=== PATIENT | female | born 1990 | race Hispanic/Latino ===

== ENCOUNTER 2017-04-05 08:59 | Emergency (ER) | payer SELFPAY ==
[2017-04-05 09:34] LABS: #Basophils 0.1 thou/uL (0.0-0.2); #Eosinphils 0.1 thou/uL (0.0-0.7); #Monocytes 0.3 thou/uL (0.11-0.59); #Neutrophils 2.9 thou/uL (1.40-6.50); %Basophils 1.1 % (0.0-1.0); %Eosinophils 1.6 % (0.0-10.0); %Lymphocytes 37.6 % (21.0-51.0); %Monocytes 5.8 % (0.0-10.0); Hematocrit 38.9 % (36.0-47.0); Mean Platelet Volume 7.5 fL (7.4-10.4); Red Blood Cell (RBC) Count 4.08 mill/uL (4.20-5.40); White Blood Cell (WBC) Count 5.3 thou/uL (4.8-10.8)
[2017-04-05] MEDS ORDERED: Acetaminophen 325 MG TAB ONE (09:36)
[2017-04-05] MEDS ORDERED: Ketorolac Tromethamine 30 MG/ML VIAL ONE (09:36)
[2017-04-05 09:55] LABS: ALT (SGPT) 22 U/L (8-55); AST (SGOT) 21 U/L (5-34); Alkaline Phosphatase 60 U/L (40-150); Anion Gap 14 mmol/L (10-20); BUN (Urea Nitrogen) 15 mg/dL (7.0-18.7); Bilirubin, Total 0.5 mg/dL (0.2-1.2); Calc. Creatinine Clearance 0 mL/min (70-130); Calcium 8.9 mg/dL (7.8-10.44); Carbon Dioxide 21 mmol/L (22-29); Chloride 109 mmol/L (98-107); Estimated GFR-MDRD Greater than 90; Globulin 3.1 g/dL (2.4-3.5); Protein, Total 7.1 g/dL (6.0-8.3)
[2017-04-05 10:15] LABS: Bilirubin Negative (Negative); Blood, Urine Large (Negative); Glucose, Urine (Dipstick) Negative (Negative); Ketone, Urine Negative (Negative); Nitrite Negative (Negative); Protein, Urine (Dipstick) 100 mg/dL (Neg-Trace); Urobilinogen 0.2 mg/dL (0.2-1.0)
[2017-04-05 10:18] LABS: Bacteria/HPF None Seen HPF (None Seen); Hyaline Casts/LPF 0-3 HYALINE CAST LPF (0-3 Hyaline); RBC/HPF 0-3 HPF (0-3); Squamous Epithelial None Seen HPF (0-3); WBC/HPF None Seen HPF (0-3)
[2017-04-05 10:24] LABS: Amphetamine Not Detected (NotDetected); Methadone Not Detected (NotDetected); Methamphetamine Not Detected (NotDetected)
[2017-04-05] MEDS ORDERED: levETIRAcetam In NaCl (Iso-Os) 1,000 MG in Premix Bag 1 BAG IVPB SCH ×2 (11:45)
== END 2017-04-05 12:57 | disposition home or self-care (01) ==
LOC: ERS 08:59
DX: G40.909 Epilepsy, unspecified, not intractable, without status epilepticus (principal)
CPT/HCPCS: 36415; 80053; 80306; 81003; 81015; 81025; 85025; 93005; 96365; 96375; J1885; J1953

== ENCOUNTER 2017-07-18 18:04 | Emergency (ER) | payer MEDICAID, SELFPAY ==
[2017-07-18 20:36] LABS: Bilirubin Negative (Negative); Blood, Urine Negative (Negative); Clarity CLEAR (Clear); Glucose, Urine (Dipstick) Negative (Negative); Leukocyte Negative (Negative); Nitrite Negative (Negative); Protein, Urine (Dipstick) Trace mg/dL (Neg-Trace); Specific Gravity, Urine 1.021 (1.002-1.036); Urobilinogen 0.2 mg/dL (0.2-1.0)
[2017-07-18 20:37] LABS: Pregnancy Test - Urine (BHCG) Negative (Negative); Pregu Control Background? CLEAR/WHITE (CLR/WHITE); Pregu Control Bar Appear? YES (CONTROL BAR); Specific Gravity 1.021 (1.002-1.036)
[2017-07-18 20:43] LABS: #Basophils 0.1 thou/uL (0.0-0.2); #Eosinphils 0.1 thou/uL (0.0-0.7); #Lymphocytes 2.9 thou/uL (1.20-3.40); #Monocytes 0.5 thou/uL (0.11-0.59); #Neutrophils 5.4 thou/uL (1.40-6.50); %Basophils 0.8 % (0.0-1.0); %Eosinophils 1.6 % (0.0-10.0); %Lymphocytes 31.7 % (21.0-51.0); %Monocytes 5.9 % (0.0-10.0); Hemoglobin 13.9 g/dL (12.0-16.0); Mean Corpuscular HGB CONC 35.9 g/dL (32.0-36.0); Mean Corpuscular Volume 91.8 fl (81.0-99.0); Mean Platelet Volume 7.4 fL (7.4-10.4); Platelet Count 272 thou/uL (130-400); Red Blood Cell (RBC) Count 4.22 mill/uL (4.20-5.40)
[2017-07-18 21:04] LABS: ALT (SGPT) 23 U/L (8-55); AST (SGOT) 25 U/L (5-34); Alkaline Phosphatase 94 U/L (40-150); Anion Gap 11 mmol/L (10-20); BUN (Urea Nitrogen) 9 mg/dL (7.0-18.7); Bilirubin, Total 0.3 mg/dL (0.2-1.2); Calc. Creatinine Clearance 0 mL/min (70-130); Calcium 8.9 mg/dL (7.8-10.44); Carbon Dioxide 24 mmol/L (22-29); Chloride 109 mmol/L (98-107); Estimated GFR-MDRD Greater than 90; Globulin 3.2 g/dL (2.4-3.5); Glucose 99 mg/dL (70-105); Protein, Total 7.2 g/dL (6.0-8.3); Sodium 140 mmol/L (136-145)
== END 2017-07-18 21:33 | disposition home or self-care (01) ==
LOC: ERS 18:04
DX: N93.9 Abnormal uterine and vaginal bleeding, unspecified (principal)
CPT/HCPCS: 36415; 80053; 81003; 81025; 84702; 85025; 86850; 86900; 86901; 99284

== ENCOUNTER 2019-01-13 22:09 | Day surgery (SDC) | payer OTHER ==
[2019-01-13 22:44] VITALS: BMI 36.6
[2019-01-13] MEDS ORDERED: hydrALAZINE 20 MG/ML VIAL SLOW IVP PRN (23:06)
--- NOTE | 2019-01-13 23:48 | PRG ---
DATE OF SERVICE: 01/13/2019 PRIMARY OB: Shamar Read MD CHIEF COMPLAINT: Leakage of fluid. HISTORY OF PRESENT ILLNESS: The patient is a 28-year-old G5, P4 female with an intrauterine at 20 weeks gestation, who is presenting to Labor and Delivery after experiencing an episode of leakage of fluid at 8:30 this evening. The patient reports bathing at 7 o'clock and at about 8:30, having some leakage of fluid and since then reports that she has had a pad that has been staying wet. She reports that the pad appears to have white discharge on it. The patient denies any uterine contractions, any vaginal bleeding. She reports that she has had a several month history of intermittent coughing and headache and sinus congestion. She reports occasional nausea, vomiting, shortness of breath, and chest pain that she has associated with this . She denies any falls, diarrhea, constipation, hip problems, knee problems, or muscle weakness. Again, denies vaginal bleeding or urinary urgency or frequency. The patient last saw her doctor this afternoon and reports that the visit was routine. The patient does report a history of 32-week delivery with similar symptoms and was diagnosed with premature rupture of membranes at that time. PAST MEDICAL HISTORY: Negative prior records. Reports a history of seizure and vertigo. PAST SURGICAL HISTORY: The patient reports negative though past medical reports describe a left ankle surgery. SOCIAL HISTORY: Denies drug, alcohol, or tobacco use. ALLERGIES: NO KNOWN DRUG ALLERGIES. MEDICATIONS: vitamins. PHYSICAL EXAMINATION: VITAL SIGNS: Blood pressure 119/66, heart rate of 87, respiratory rate 18, temperature 98.2. GENERAL: She appears to be in no acute distress. She is alert and oriented, cooperative, and pleasant to interact with. HEENT: Head is normocephalic, atraumatic. LUNGS: Clear to auscultation bilaterally. HEART: Regular rate and rhythm. ABDOMEN: Soft, nontender. EXTREMITIES: Nontender, nonedematous. Vulva is without masses, lesions, or erythema. It does appear moist on speculum exam. Vagina is moist with a white creamy discharge. Cervix is difficult to see as the vaginal shelton quickly collapsed down. VPIII and AmniSure collected. There is no pulling noticeable with Valsalva or cough. On digital exam, cervix is firm and close. No palpable presenting parts. heart tones are dopplered in the 150s. AmniSure and VPIII tear collected. ASSESSMENT AND PLAN: The patient is a 28-year-old G5, P4 female with an intrauterine at 20 weeks presenting with a single episode of leakage of fluid after taking a bath. AmniSure and VPIII are pending. If AmniSure report returns negative, the patient will be discharged home with reassurance as the VPIII will not be back until tomorrow. The patient has her next appointment with Dr. Read in 4 weeks. If the VPIII comes back positive, we will be sending her home with metronidazole for bacterial vaginosis or other treatment as indicated. Fetus has reassurance by Doppler heart tones. Job ID: [id number]
[2019-01-14 00:41] LABS: Amnisure Test No Membranes Rupture (No Rupture)
[2019-01-14 00:42] LABS: Amnisure Internal Control QC ACCEPTABLE (ACCEPTABLE)
== END 2019-01-14 01:27 | disposition home or self-care (01) ==
LOC: L&D/OP 22:09
PROVIDERS: ATTEND Obstetrics & Gynecology
DX: O99.89 Other specified diseases and conditions complicating pregnancy, childbirth and the puerperium (principal); N89.8 Other specified noninflammatory disorders of vagina; Z3A.20 20 weeks gestation of pregnancy
CPT/HCPCS: 84112; 87480; 87510; 87660; 99285

== ENCOUNTER 2019-02-20 13:07 | Emergency (ER) | payer OTHER ==
[2019-02-20] MEDS ORDERED: Acetaminophen 500 MG TAB ONE (14:14)
== END 2019-02-20 14:40 | disposition home or self-care (01) ==
LOC: ERS 13:07
DX: O9A.212 Injury, poisoning and certain other consequences of external causes complicating pregnancy, second trimester (principal); S39.91XA Unspecified injury of abdomen, initial encounter; Z3A.25 25 weeks gestation of pregnancy

== ENCOUNTER 2019-04-12 14:27 | Day surgery (SDC) | payer OTHER ==
[2019-04-12 15:26] VITALS: BMI 38.2
[2019-04-12] MEDS ORDERED: FLU VACC QS2019-20(6MOS UP)/PF 60 MCG/0.5 ML SYRINGE IM ONE (15:30)
[2019-04-12 16:01] LABS: Amnisure Internal Control QC ACCEPTABLE (ACCEPTABLE); Amnisure Test No Membranes Rupture (No Rupture)
--- NOTE | 2019-04-12 20:27 | PRG ---
DATE OF SERVICE: 04/12/2019 PRIMARY OB: Shamar Read MD CHIEF COMPLAINT: Leakage of fluid. HISTORY OF PRESENT ILLNESS: The patient is a 29-year-old, G5, P4 female with an intrauterine at 32 weeks and 5 days, presenting with a 5-day history of leakage of fluid. The patient was initially evaluated in the clinic and was noted to have an AIRAM of 7 and was sent here for further evaluation. The patient reports that she has just been having this watery discharge. She reports a history of premature rupture of membranes with the previous and just wanted to come and make sure things are okay. The patient denies any vaginal bleeding. She denies any change in odorous discharge. Denies any fever, fall, headache, chest pain, shortness of breath, nausea, vomiting, diarrhea, constipation, hip problems, knee problems, or muscle weakness. Denies any vaginal bleeding or leakage of fluid. Denies urinary urgency or frequency. PAST MEDICAL HISTORY: Noncontributory. PAST SURGICAL HISTORY: She had a left ankle surgery. ALLERGIES: NO KNOWN DRUG ALLERGIES. MEDICATIONS: vitamins. SOCIAL HISTORY: Denies drug, alcohol, or tobacco use. OB LABS: Blood type is O positive. RPR is nonreactive. HIV nonreactive. REVIEW OF SYSTEMS: Per HPI. PHYSICAL EXAMINATION: VITAL SIGNS: Blood pressure 116/58, heart rate of 71, saturating 97% on room air, temperature 98.4, and respiratory rate 14. GENERAL: She appears to be in no acute distress. She is alert and oriented, cooperative, and pleasant to interact with. HEAD: Normocephalic and atraumatic. LUNGS: Clear to auscultation bilaterally. HEART: Regular rate and rhythm. ABDOMEN: Gravid and soft. EXTREMITIES: Nontender. Nonedematous. : Vulva without masses, lesions, or erythema. Vagina is moist. She has some watery discharge. No pulling. Cervix is visibly closed. AmniSure collected and VP3 collected. heart tracing shows a baseline in the 140s with moderate long-term variability positive 15 x 15 accelerations. Tocometer shows no contractions. AmniSure test is negative. VP3 is negative x3. ASSESSMENT AND PLAN: The patient is a 29-year-old multiparous female with an intrauterine at 32 weeks and 5 days complaining of some leakage of fluid. The patient has no evidence of yeast infection, bacterial vaginosis, Trichomonas, or evidence of rupture of membranes. The patient did have a little more watery discharge, look transudative in nature. The patient has been discharged home with instructions to follow up with her primary OB as scheduled. Fetus has a reactive NST and category 1 tracing. Job ID: [id number]
== END 2019-04-12 17:20 | disposition home or self-care (01) ==
LOC: L&D/OP 14:27
PROVIDERS: ATTEND Obstetrics & Gynecology
DX: O99.89 Other specified diseases and conditions complicating pregnancy, childbirth and the puerperium (principal); N89.8 Other specified noninflammatory disorders of vagina; Z3A.32 32 weeks gestation of pregnancy
CPT/HCPCS: 84112; 87480; 87510; 87660; 99285

== ENCOUNTER 2019-05-16 00:22 | Day surgery (SDC) | payer OTHER ==
[2019-05-16 00:54] VITALS: BMI 37.6
--- NOTE | 2019-05-16 02:52 | PDOC.FPROB ---
FMR OB H&P: HPI - History of Present Illness Chief Complaint: contractions History of Present Illness: 29 yo @37.4wks presents with contractions since yesterday morning. States they were 10 minutes apart and painful, however currently they have improved and are less painful. 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 Endorses movement. Denies LOF, VB, discharge, dysuria. FMR OB H&P: Current - Care : 5 Para: 4 FMR OB H&P: History - Past Medical History PMH: denies - OB History OB History: four prior vaginal deliveries, term - Surgical History Sx History: none - Social History Social History: denies smoking, alcohol, drug use - Family History Family History: denies diabetes, htn in family FMR OB H&P: Medications - Current Home Medications: Medication Instructions Recorded Confirmed Type Pnv72/Iron,Gluc/Folic/Dss/Dha 1 tab PO DAILY 04/12/19 05/16/19 History [Citranatal 90 DHA Combo Pack] Allergies/Adverse Reactions: Allergies Allergy/AdvReac Type Severity Reaction Status Date / Time No Known Drug Allergies Allergy Verified 05/16/19 00:54 FMR OB H&P: ROS - Review of Systems General: denies: fever/chills, weight/appetite/sleep changes ENT: denies: nasal congestion, rhinorrhea Cardiovascular: denies: chest pain, palpitation Respiratory: denies: cough, congestion, shortness of breath Gastrointestinal: denies: abdominal pain, nausea, vomiting, diarrhea Genitourinary (Female): reports: contractions. denies: dysuria, hematuria, vaginal discharge, vaginal pain, vaginal bleeding Musculoskeletal: denies: pain, stiffness Neurologic: denies: numbness, syncope Integumentary: denies: itching, rash Endocrine: denies: cold intolerance, heat intolerance Hematologic/Lymphatic: denies: prolonged or excessive bleeding FMR OB H&P: Vital Signs - Maternal Vital signs: 114/67 - Heart Tones Baseline: 120 (reactive) Variability: moderate Acceleration: present [place] contractions every: none FMR OB H&P: Physical Exam - Physical Exam General: NAD, awake, alert and oriented Heart: RRR, normal S1/S2, no murmurs/rubs/gallops General: CTAB, no respiratory distress, good air movement Abdomen: soft, gravid Skin: no rash, good tugor, capillary refill <2 seconds Lymphatic: no unusual bruising or bleeding, no purpura Psychiatric: intact recent and remote memory - Pelvic Exam SVE: /-3 FMR OB H&P: A/P - Problem List (1) Third trimester Status: Acute Code(s): Z34.93 - ENCNTR FOR SUPRVSN OF NORMAL PREG, UNSP, THIRD TRIMESTER (2) Irregular contractions Status: Acute Code(s): O62.2 - OTHER UTERINE INERTIA Discussion: Date/Time: 05/16/19 0252 29 yo @37.4wks presents with contractions- 1.)Labor rule out-will monitor via NST and recheck cervix to assess for change. Suspect d/c. This H&P was discussed with Dr. Ponce who agree with the above documentation and plan.
== END 2019-05-16 02:30 | disposition home or self-care (01) ==
LOC: L&D/OP 00:22
PROVIDERS: ATTEND Obstetrics & Gynecology
DX: O47.1 False labor at or after 37 completed weeks of gestation (principal); Z3A.37 37 weeks gestation of pregnancy

== ENCOUNTER 2019-05-23 13:50 | Inpatient (IN) | payer MEDICAID, OTHER, SELFPAY ==
[2019-05-23 14:17] LABS: Bilirubin Negative (Negative); Blood, Urine Negative (Negative); Clarity Clear (Clear); Glucose, Urine (Dipstick) Normal (Negative); Leukocyte Negative Leu/uL (Negative); Nitrite Negative (Negative); Protein, Urine (Dipstick) Negative (Neg-Trace); Urobilinogen Normal mg/dL (Less than 2)
[2019-05-23 15:00] LABS: #Lymphocytes 0.7 thou/uL (1.20-3.40); #Monocytes 0.5 thou/uL (0.11-0.59); #Neutrophils 5.9 thou/uL (1.40-6.50); %Basophils 0.2 % (0.0-1.0); %Eosinophils 0.7 % (0.0-10.0); %Lymphocytes 10.2 % (21.0-51.0); Hemoglobin 11.5 g/dL (12.0-16.0); Mean Corpuscular HGB CONC 34.4 g/dL (32.0-36.0); Mean Corpuscular Hemoglobin 31.5 pg (27.0-31.0); Mean Corpuscular Volume 91.4 fL (78.0-98.0); Mean Platelet Volume 8.7 fL (7.4-10.4); Platelet Count 213 thou/uL (130-400); Red Blood Cell (RBC) Count 3.67 mill/uL (4.20-5.40); White Blood Cell (WBC) Count 7.2 thou/uL (4.8-10.8)
[2019-05-23 15:18] LABS: ALT (SGPT) 8 U/L (8-55); AST (SGOT) 19 U/L (5-34); Albumin 3.3 g/dL (3.5-5.0); Alkaline Phosphatase 138 U/L (40-110); Anion Gap 17 mmol/L (10-20); BUN (Urea Nitrogen) 5 mg/dL (7.0-18.7); Bilirubin, Total 0.6 mg/dL (0.2-1.2); Calc. Creatinine Clearance 0 mL/min (70-130); Calcium 8.4 mg/dL (7.8-10.44); Carbon Dioxide 17 mmol/L (22-29); Chloride 108 mmol/L (98-107); Estimated GFR-MDRD Greater than 90; Glucose 101 mg/dL (70-105); Potassium 3.8 mmol/L (3.5-5.1); Protein, Total 6.3 g/dL (6.0-8.3); Sodium 138 mmol/L (136-145)
[2019-05-23] MEDS ORDERED: Bupivacaine 0.25% HCL 30 ML VIAL ONE (15:52)
[2019-05-23] MEDS ORDERED: ePHEDrine/0.9% NaCl/PF SYRINGE 50 mg/10 ml ONE (15:52)
[2019-05-23] MEDS ORDERED: hydrALAZINE 20 MG/ML VIAL SLOW IVP PRN ×2 (16:50→19:28)
[2019-05-23] MEDS ORDERED: FLU VACC QS2019-20(6MOS UP)/PF 60 MCG/0.5 ML SYRINGE IM ONE (17:00)
[2019-05-23] MEDS ORDERED: Lactated Ringer's 1,000 ML IV SCH (17:00)
[2019-05-23 17:37] LABS: Amnisure Test No Membranes Rupture (No Rupture)
[2019-05-23 17:38] LABS: Amnisure Internal Control QC ACCEPTABLE (ACCEPTABLE)
[2019-05-23] MEDS ORDERED: Ibuprofen 800 MG TAB PO PRN ×2 (19:28→21:58)
[2019-05-23] MEDS ORDERED: Meperidine HCl/PF 25 MG/ML VIAL IM/IV PRN (19:28)
[2019-05-23] MEDS ORDERED: NS / Oxytocin 40 units/1000ml 1,000 ML IV PRN ×3 (19:28→21:58)
[2019-05-23] MEDS ORDERED: Lidocaine 1% (PF) 30 ML VIAL SC PRN ×3 (19:28→21:58)
[2019-05-23] MEDS ORDERED: Promethazine HCl 25 MG/ML VIAL IM PRN (19:28)
[2019-05-23] MEDS ORDERED: Ondansetron PF 4 MG/2 ML Vial IVP PRN (19:28)
[2019-05-23] MEDS ORDERED: HYDROcodone/Acetaminophen 5/325 mg Tablet PO PRN ×4 (19:28→21:58)
[2019-05-23] MEDS ORDERED: NS w/ Oxytocin 10 units 500 ML IV SCH ×5 (19:30→22:00)
--- NOTE | 2019-05-23 19:33 | PDOC.LDHP ---
Labor and Delivery H&P Chief complaint: loss of fluid HPI: 29 yo LAF presents c/o LOF and back pain, flu like sxs. Seen in ER today with normal CBC, Chem and UA, flu swab was negative. Current gestational age (weeks): 38 Due date: 06/02/19 Dating criteria: last menstrual period Grav: 5 Para: 4 OB History Details: PNC with Dr. Read w/o reported complications. H/o x4 Current complications: none Abnormal US findings: No Past Medical History: none Current medications: pre-arnulfo vitamins Previous surgical history: other (L ankle) Allergies/Adverse Reactions: Allergies Allergy/AdvReac Type Severity Reaction Status Date / Time No Known Drug Allergies Allergy Verified 05/16/19 00:54 Social history: none - Physical Exam Vital signs reviewed and normal: yes General: other (uncomfortable) Heart: RRR Lungs: CTAB Abdomen: gravid Extremeties: trace edema FHT: category 1 (FHTs 170's to 180's) - OB Labs GBS: negative - Assessment L&D Assessment: term rupture in membranes (Amniosure negative but AIRAM=4) - Plan Plan: admit to L&D, informed consent obtained (Advised delivery, Dr. Read notified), anesthesia consult for pain management
--- NOTE | 2019-05-23 20:05 | ULT ---
BIOPHYSICAL PROFILE: Date: 05/23/2019 HISTORY: tachycardia. FINDINGS: Real-time imaging of the pelvis was performed. heart rate was 169 beats/minute. Placenta is Gra de III placenta, located more anterior. Amniotic fluid index was 4.3, although there was one pocket l arger than 2.0 cm identified. biophysical profile score is as follows: tone: 2 breathin movements: 2 Amniotic fluid: 2 IMPRESSION: biophysical profile score of 6 of a possible 8. POS: JORGE
[2019-05-23] MEDS: Acetaminophen 500 MG TAB PO PRN (21:53)
[2019-05-23] MEDS: Butorphanol Tartrate 1 MG/ML VIAL SLOW IVP PRN ×2 (21:54→23:34)
[2019-05-23] MEDS ORDERED: Carboprost 250 MCG/ML AMP IM PRN (21:58)
[2019-05-23] MEDS ORDERED: Diphenoxylate HCl/Atropine Tablet PO PRN ×2 (21:58)
[2019-05-23] MEDS ORDERED: Misoprostol 200 MCG TAB PR PRN (21:58)
[2019-05-23] MEDS ORDERED: Methylergonovine 0.2 MG/ML VIAL IM PRN (21:58)
[2019-05-23] MEDS ORDERED: Azithromycin 500 MG in Sodium Chloride 0.9% 250 ML 250 ML IVPB SCH (22:00)
[2019-05-23] MEDS ORDERED: CEFAZOLIN 1 GM in Sodium Chloride 0.9% 100 ML IVPB SCH (22:00)
[2019-05-23] MEDS: ceFAZolin 1 GM/D5W 1 GM in Premix Bag 1 BAG IVPB SCH (22:33)
[2019-05-23] MEDS: Lactated Ringer's 1,000 ML IV SCH (22:33)
[2019-05-24] MEDS ORDERED: Fentanyl 4 mcg/Bup 0.1% Cadd 100 ML ONE ×3 (00:04→14:05)
[2019-05-24] MEDS: Lactated Ringer's 1,000 ML IV SCH ×2 (01:46→09:40)
[2019-05-24 02:00] LABS: HBSAg Index 0.24 S/CO (0-0.99); Hep B Surf Ag Non-Reactive S/CO (NonReactive)
[2019-05-24 04:24] LABS: Syphilis Antibody Nonreactive (Nonreactive); Syphilis Antibody Index 0.03 S/CO (<1.00 Non-Reactive)
[2019-05-24] MEDS: ceFAZolin 1 GM/D5W 1 GM in Premix Bag 1 BAG IVPB SCH ×2 (06:21→14:17)
[2019-05-24 07:50] VITALS: BMI 38.0
[2019-05-24] MEDS: Acetaminophen 500 MG TAB PO PRN (10:51)
[2019-05-24] MEDS ORDERED: Lidocaine 1% (PF) 30 ML VIAL ONE (13:55)
[2019-05-24] MEDS ORDERED: NS / Oxytocin 40 units/1000ml 1,000 ML ONE (13:55)
[2019-05-24] MEDS ORDERED: Preparation H Ointment 28 GM TUBE PR PRN ×2 (15:38→21:35)
[2019-05-24] MEDS ORDERED: NS / Oxytocin 40 units/1000ml 1,000 ML IV SCH ×2 (15:38→21:35)
[2019-05-24] MEDS ORDERED: Varicella virus, LIVE 0.5 ML VIAL SC ONE (15:38)
[2019-05-24] MEDS ORDERED: HYDROcodone/Acetaminophen 5/325 mg Tablet PO PRN ×4 (15:38→21:35)
[2019-05-24] MEDS ORDERED: Ibuprofen 800 MG TAB PO SCH (15:38)
[2019-05-24] MEDS ORDERED: Ferrous Sulfate 325 MG TAB PO SCH ×2 (15:38→22:00)
[2019-05-24] MEDS ORDERED: Lanolin Ointment 7 GM TUBE TOP PRN ×2 (15:38→21:35)
[2019-05-24] MEDS ORDERED: Measles/Mumps/Rubella 10 MCG/0.5 ML VIAL SC ONE (15:38)
[2019-05-24] MEDS ORDERED: Benzocaine-Menthol 82.5 ML CAN TOP PRN ×2 (15:38→21:35)
[2019-05-24] MEDS ORDERED: Zolpidem Tartrate 5 MG TAB PO PRN ×2 (15:38→21:35)
[2019-05-24] MEDS ORDERED: Misoprostol 200 MCG TAB VAG PRN ×2 (15:38→21:35)
[2019-05-24] MEDS ORDERED: Adacel (T-DAP) 0.5 ML SYRINGE IM ONE (15:38)
[2019-05-24] MEDS ORDERED: Prenatal Vitamin 1 TAB PO SCH (15:38)
[2019-05-24] MEDS ORDERED: Promethazine HCl 25 MG/ML VIAL IM PRN ×2 (15:38→21:35)
[2019-05-24] MEDS ORDERED: Docusate Calcium (SURFAK) 240 MG CAP PO SCH ×2 (15:38→22:00)
[2019-05-24] MEDS ORDERED: diphenhydrAMINE 25 MG CAP PO PRN ×2 (15:38→21:35)
[2019-05-24] MEDS ORDERED: Methylergonovine 0.2 MG/ML VIAL IM PRN ×2 (15:38→21:35)
[2019-05-24] MEDS ORDERED: hydrALAZINE 20 MG/ML VIAL SLOW IVP PRN ×2 (15:38→21:35)
[2019-05-24] MEDS ORDERED: Bisacodyl 10 MG SUPP PR PRN ×2 (15:38→21:35)
[2019-05-24] MEDS ORDERED: Milk Of Magnesia 30 ML UDCUP PO PRN ×2 (15:38→21:35)
[2019-05-24] MEDS ORDERED: Ondansetron PF 4 MG/2 ML Vial IVP PRN (21:35)
[2019-05-24] MEDS: Ibuprofen 800 MG TAB PO SCH (23:17)
[2019-05-25] MEDS: Ibuprofen 800 MG TAB PO SCH ×2 (06:24→14:07)
[2019-05-25] MEDS ORDERED: Docusate Calcium (SURFAK) 240 MG CAP PO SCH (09:00)
[2019-05-25] MEDS ORDERED: Prenatal Vitamin 1 TAB PO SCH (09:00)
[2019-05-25] MEDS: Ferrous Sulfate 325 MG TAB PO SCH ×2 (09:12→15:49)
[2019-05-25 11:37] VITALS: BP 99/61; TEMP 97.6
[2019-05-25] MEDS ORDERED: Adacel (T-DAP) 0.5 ML SYRINGE IM ONE (17:00)
[2019-05-26 00:55] LABS: Chlamydia by PCR Not Detected (NotDetected); GC by PCR Not Detected (NotDetected)
--- NOTE | 2019-05-26 03:34 | DN ---
DATE OF PROCEDURE: 05/24/2019 TIME: 1452 central standard time. PREOPERATIVE DIAGNOSIS: Intrauterine at 38 weeks and 1 day with patient presenting with abdominal pain and found to have oligohydramnios. She was induced. POSTOPERATIVE DIAGNOSIS: Intrauterine at 38 weeks and 1 day with patient presenting with abdominal pain and found to have oligohydramnios. She was induced. PROCEDURE PERFORMED: Spontaneous vaginal delivery over intact perineum. FINDINGS: Viable female infant weighing 2681 g or 5 pounds 14 ounces. Apgars of 8 and 9. QUANTITATIVE BLOOD LOSS: 50 mL. COMPLICATIONS: None. DESCRIPTION OF PROCEDURE: The patient presented to [facility] where she was admitted to the labor and delivery service. The patient underwent a normal and uneventful labor with normal cervical dilatation until she was found to be completely dilated. She was then allowed to push and was able to bring the baby down and delivered the baby in a vertex presentation without difficulties. Once the head delivered in occiput anterior position, the shoulders followed spontaneously along with the rest of the baby's body. Once out the baby's mouth and nose were bulb suctioned. The cord was clamped and cut and baby was handed to waiting attendants. Cord blood was collected. Gentle fundal massage was performed and the placenta delivered intact without problems. Hemostasis was assured. Quantitative blood loss was calculated. Inspection of the cervix, vaginal vault, and perineum did not reveal any lacerations needing suturing. Once again, hemostasis was within normal limits and the patient was allowed to recover in the labor and delivery room. Baby went to nursery. Job ID: [id number]
[2019-05-26] MEDS ORDERED: FLU VACC QS2019-20(6MOS UP)/PF 60 MCG/0.5 ML SYRINGE IM ONE (15:45)
== END 2019-05-25 17:00 | disposition home or self-care (01) | DRG 807 ==
LOC: ERS 13:50 → L&D/OP 15:34 → L&D 19:28 → 3SW 05-25 09:02
PROVIDERS: ADMIT Obstetrics & Gynecology; ATTEND Obstetrics & Gynecology
PROC: 10E0XZZ Delivery of Products of Conception, External Approach (ICD-10-PCS; principal; 2019-05-25)
DX: O41.03X0 Oligohydramnios, third trimester, not applicable or unspecified (principal); Z37.0 Single live birth; Z3A.38 38 weeks gestation of pregnancy
CPT/HCPCS: 36415; 51702; 76819; 80053; 81003; 84112; 85025; 86780; 86850; 86900; 86901; 87340; 87491; 87591; 87804; 90471; 90686; 90715; 96360; 99285; G0008; J0456; J0595; J0690; J2001; J2405; J2590; J7050; S0020

== ENCOUNTER 2020-04-13 09:53 | Emergency (ER) | payer SELFPAY ==
[2020-04-13] MEDS ORDERED: Lidocaine 1% w/Epinephrine 1:100K 20 ML VIAL ONE (10:03)
[2020-04-13] MEDS ORDERED: Boostrix 0.5 ML (Tdap) VIAL ONE (10:03)
== END 2020-04-13 10:34 | disposition home or self-care (01) ==
LOC: ERS 09:53
DX: S51.811A Laceration without foreign body of right forearm, initial encounter (principal); W26.0XXA Contact with knife, initial encounter
CPT/HCPCS: 12002; 90471; 90715

== ENCOUNTER 2020-04-24 17:16 | Emergency (ER) | payer SELFPAY | END 2020-04-24 18:07 | disposition home or self-care (01) | LOC: ERS 17:16 | DX: S51.011D Laceration without foreign body of right elbow, subsequent encounter (principal) ==

== ENCOUNTER 2024-06-11 13:35 | Outpatient (CLI) | payer BC | END 2024-06-11 13:36 | disposition home or self-care (01) | LOC: BICMAMMO 13:35 | PROVIDERS: ATTEND Student in an Organized Health Care Education/Training Program | DX: R22.32 Localized swelling, mass and lump, left upper limb (principal) | CPT/HCPCS: 77066; G0279 ==